=== PATIENT | female | born 1985 | race Caucasian/White ===

== ENCOUNTER 2024-11-19 08:09 | Emergency (ER) | payer BC, SELFPAY ==
[2024-11-19 08:22] VITALS: BP 129/88
[2024-11-19 08:58] VITALS: BMI 30.2
--- NOTE | 2024-11-19 09:01 | EDRN ---
Dr. Richards in room w/pt at this time.
--- NOTE | 2024-11-19 09:05 | ED.GENMED ---
History of Present Illness
General
Chief Complaint: Musculo-Skeletal Complaint
Source: patient
Time Seen by Provider: 11/19/24 08:56
History of Present Illness
History of Present Illness:
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 Since that time, she notes discomfort at the fourth digit/ring finger on the right
side specifically at the midshaft of the phalanx and also MCP area. She does have full range of motion but it hurts in that area to fully flex her fingers. She denies any other injury, numbness, break in skin.
Past History
Past History
ED Past Medical History: Psychiatric
ED Past Surgical History: Gynecological
Social History
Tobacco: Non-smoker
Alcohol: None
Drug: None
Personal:
Living: with family
Employment: Employed
Phy Exam
Physical Exam
Physical Exam:
GENERAL: Alert , in no apparent distress
EYE: pupils equal and reactive
NECK: Supple, no significant adenopathy.
ENT: o/p clr, mmm.
CARDIAC: Regular rate and rhythm .
LUNGS: Clear breath sounds bilaterally, no acute respiratory distress, no wheezes/rales/rhonchi
NEUROLOGICAL: Alert and oriented, nonfocal
SKIN: Warm and dry, skin intact.
MUSCULOSKELETAL: Well perfused. There is TTP noted at R 4th digit phalanx mid and distal shaft into MCP. FROM (but with discomfort). No break in skin/warmth/swelling/crepitus/fluctuance or other abnl.
PSYCH: Normal and appropriate interaction.
Course
Orders/Labs/Results
Orders:
Orders
11/19/24 08:25
Hand, Right 3 View [CR Hand - Right Min 3 Views] Urgent
Comment:
Reason For Exam: pain, swelling, injury
Vital Signs
Initial and Last Documented VS:
Initial Vital Signs
Temp Pulse Resp BP Pulse Ox
98.2 F 95 22 129/88 96
11/19/24 08:22 11/19/24 08:22 11/19/24 08:22 11/19/24 08:22 11/19/24 08:22
Last Documented Vital Signs
Temp Pulse Resp BP Pulse Ox
98.2 F 80 16 123/76 96
11/19/24 08:22 11/19/24 09:20 11/19/24 09:20 11/19/24 09:20 11/19/24 09:20
*Critical Care Note
Total Time (30-74mins, 75-104mins- exclusive of procedures): Not Applicable
Update Note
Update Note:
Patient presents to the Emergency Department with __r hand pain/injury
Number and Complexity of Problems Addressed at the Encounter
� Chronic conditions affecting care:
� Acute Exacerbation and/or Progression of Chronic Illness:
� Differential Diagnosis includes:but not limited to contusion, fracture, strain, sprain, etc. etc
Amount and/or Complexity of Data to be Reviewed and Analyzed
� I performed an independent evaluation of and my interpretation is:
EKG:
CT:
Xrays:read by me nad
Laboratory Studies:
Other:
� Review of other/old records reveals:
� Clinical information was obtained by an independent historian:
� Prescriptions/Medications Considered but not given:
� Further testing considered but not performed:
Risk of Complications and/or Morbidity or Mortality of Patient Management
� Social determinants of health affecting care:
� Discussion with other providers (PCP, Hospitalists, Consultants, etc):
� Escalation of care including admission/observation vs risk of discharge considered:D/w pt prelim rads report, import of close f/u on formal results, and import of f/u reasons to rted. Declines pain meds in ED.
ED Attending Note
-
Portions of this chart may have been created with voice recognition software.� Occasional wrong word or��sound alike� substitutions may have occurred due to the inherent limitations of voice recognition software.
Discharge Plan
Departure
Patient Disposition: Home (Routine Discharge)
Date of Disposition: 11/19/24
Time of Disposition: 09:05
Patient with high blood pressure during this ER visit?: Yes
Condition: Good
Discharge Problem:
Hand strain
Instructions: Hand pain, BLOOD PRESSURE
Referrals:
Prabhakar Farley MD [Active] - As needed
Activity Restrictions/Additional Instructions:
IF YOU DEVELOP INCREASING/NEW/PERSISTENT PAIN, ANY REDNESS/WARMTH/SWELLING/FEVER, NUMBNESS, DO NOT GET BETTER, GET WORSE, OR OTHER WORRISOME SIGNS, GO TO THE ER IMMEDIATELY!
Interventions
Interventions:
*Risk Screen - Suicide Last Done: 11/19/24 08:58
*General Assessment Last Done: 11/19/24 08:58
*Neglect/Abuse Screening Last Done: 11/19/24 08:58
*ED- Fall Risk Assessment Last Done: 11/19/24 08:58
*ED COVID-19 Vaccine History Last Done: 11/19/24 08:58
*Nursing Disposition Last Done: 11/19/24 09:24
ED-Musculoskeletal Assessment Last Done: 11/19/24 08:58
Discharge Date and Time
Discharge Date/Time: 11/19/24 09:25
Print Language: ESTONIAN
[2024-11-19 09:20] VITALS: BP 123/76
== END 2024-11-19 09:25 | disposition home or self-care (01) ==
LOC: EMR 08:09
PROVIDERS: EMERGENCY PHYSICIAN Emergency Medicine; FAMILY PHYSICIAN Family Medicine
DX: S66.919A Strain of unspecified muscle, fascia and tendon at wrist and hand level, unspecified hand, initial encounter (principal); X58.XXXA Exposure to other specified factors, initial encounter
CPT/HCPCS: 99283; 73130